=== PATIENT | female | born 1990 | race African-American/Black ===

== ENCOUNTER 2017-03-05 21:02 | Emergency (ER) | payer BC, OTHER, SELFPAY ==
[2017-03-05] MEDS ORDERED: Ketorolac Tromethamine 60 MG/2 ML VIAL ONE (21:55)
[2017-03-05] MEDS ORDERED: HYDROcodone/Acetaminophen 5/325 mg Tablet ONE (21:55)
[2017-03-05 22:43] LABS: Bilirubin Negative (Negative); Blood, Urine Negative (Negative); Glucose, Urine (Dipstick) Negative (Negative); Ketone, Urine Negative (Negative); Nitrite Negative (Negative); Protein, Urine (Dipstick) Negative (Neg-Trace)
[2017-03-05 22:45] LABS: Bacteria/HPF 1+ HPF (None Seen); Hyaline Casts/LPF 0-3 HYALINE CAST LPF (0-3 Hyaline); RBC/HPF 0-3 HPF (0-3)
[2017-03-05] MEDS ORDERED: Nitrofurantoin Monohyd/M-Cryst 100 MG CAP PO SCH (23:00)
== END 2017-03-05 23:00 | disposition home or self-care (01) ==
LOC: ERS 21:02
DX: N39.0 Urinary tract infection, site not specified (principal)
CPT/HCPCS: 81003; 81015; 81025; 96372; J1885

== ENCOUNTER 2017-03-15 18:41 | Emergency (ER) | payer SELFPAY ==
[~2017-03-15 18:41] MED LIST: ISOVUE-370 76%-LOCM 1 ML ONE
[2017-03-15 19:48] LABS: #Lymphocytes 1.4 thou/uL (1.20-3.40); #Monocytes 0.3 thou/uL (0.11-0.59); #Neutrophils 2.7 thou/uL (1.40-6.50); %Basophils 0.9 % (0.0-1.0); %Eosinophils 1.1 % (0.0-10.0); %Lymphocytes 31.2 % (21.0-51.0); %Monocytes 6.2 % (0.0-10.0); %Neutrophils 60.6 % (42.0-75.0); Hemoglobin 13.7 g/dL (12.0-16.0); Mean Corpuscular HGB CONC 31.6 g/dL (32.0-36.0); Mean Corpuscular Hemoglobin 30.3 pg (27.0-31.0); Mean Corpuscular Volume 95.9 fl (81.0-99.0); Platelet Count 225 thou/uL (130-400); RBC Distribution Width 12.4 % (11.5-14.5); Red Blood Cell (RBC) Count 4.51 mill/uL (4.20-5.40); White Blood Cell (WBC) Count 4.5 thou/uL (4.8-10.8)
[2017-03-15 20:09] LABS: ALT (SGPT) 19 U/L (8-55); AST (SGOT) 19 U/L (5-34); Albumin 4.4 g/dL (3.5-5.0); Alkaline Phosphatase 83 U/L (40-150); Anion Gap 11 mmol/L (10-20); BUN (Urea Nitrogen) 9 mg/dL (7.0-18.7); Bilirubin, Total 0.4 mg/dL (0.2-1.2); Calc. Creatinine Clearance 0 mL/min (70-130); Calcium 9.5 mg/dL (7.8-10.44); Carbon Dioxide 27 mmol/L (22-29); Chloride 105 mmol/L (98-107); Estimated GFR-MDRD Greater than 90; Globulin 3.6 g/dL (2.4-3.5); Glucose 99 mg/dL (70-105); Potassium 4.2 mmol/L (3.5-5.1); Sodium 139 mmol/L (136-145)
[2017-03-15 20:10] LABS: BHCG - Serum Negative (NEGATIVE); Pregs Control Background? CLEAR/WHITE (CLR/WHITE); Pregs Control Bar Appear? YES (CONTROL BAR)
[2017-03-15] MEDS ORDERED: Methocarbamol 1 GM in Sodium Chloride 0.9% 100 ML IVPB ONE (20:30)
--- NOTE | 2017-03-15 21:33 | CT ---
CT OF ABDOMEN AND PELVIS PERFORMED CONTRAST ENHANCEMENT: 03/15/17 HISTORY: Abdominal pain radiating to groin. Patient has reportedly been treated for a kidney infection. The lung bases are clear. The liver, spleen, pancreas and gallbladder regions appear unremarkable. Right and left adrenal glands and right and left kidneys are normal in size and appearance. There is no significant periaortic or mesenteric adenopathy. There is a moderate amount of stool in the colon. CT OF PELVIS PERFORMED WITH CONTRAST ENHANCEMENT: Follicles are seen involving the adnexa with trace free fluid. Appendix is normal. IMPRESSION: No acute abnormalities of the abdomen or pelvis. POS: [facility]
[2017-03-15] MEDS ORDERED: Ketorolac Tromethamine 30 MG/ML VIAL ONE (21:56)
[2017-03-15 23:42] LABS: Pregnancy Test - Urine (BHCG) Negative (Negative)
[2017-03-15 23:44] LABS: Bilirubin Negative (Negative); Blood, Urine Negative (Negative); Clarity CLEAR (Clear); Glucose, Urine (Dipstick) Negative (Negative); Leukocyte Negative (Negative); Nitrite Positive (Negative); Protein, Urine (Dipstick) Negative (Neg-Trace)
[2017-03-15 23:46] LABS: Bacteria/HPF Rare-Few HPF (None Seen); RBC/HPF 0-3 HPF (0-3); WBC/HPF None Seen HPF (0-3)
[2017-03-15 23:49] LABS: Pathc Cast-AUWi Flag 4.47 (0-2.49); Pregu Control Background? CLEAR/WHITE (CLR/WHITE); Pregu Control Bar Appear? YES (CONTROL BAR); Specific Gravity 1.027 (1.002-1.036)
[2017-03-15 23:51] LABS: Hyaline Casts/LPF 4-6 HYALINE CAST LPF (0-3 Hyaline); Specific Gravity, Urine Greater than 1.060 (1.002-1.036)
[2017-03-15 23:52] LABS: Other Casts/LPF None Seen LPF (0-3 Hyaline)
[2017-03-16] MEDS ORDERED: Sulfameth/Trimethoprim DS 800-160mg TAB ONE (00:34)
== END 2017-03-16 00:39 | disposition home or self-care (01) ==
LOC: ERS 18:41
DX: N39.0 Urinary tract infection, site not specified (principal); M54.41 Lumbago with sciatica, right side; Z79.891 Long term (current) use of opiate analgesic
CPT/HCPCS: 36415; 74177; 80053; 81003; 81015; 81025; 84703; 85025; 87086; 96365; 96375; J1885; J2800; J7050